=== PATIENT | male | born 2000 | race Hispanic/Latino ===

== ENCOUNTER → 2019-02-24 | Outpatient (CLI) | payer OTHER ==
--- NOTE | 2019-02-26 09:27 | Diagnostic Imaging Report ---
#[id number] - USBRECOMLT ULTRASOUND OF THE LEFT BREAST : 02/24/2019 No prior exams were available for comparison. Real-time ultrasound was performed on the left breast. There are no solid or cystic masses identified. IMPRESSION: NEGATIVE There is no sonographic evidence of malignancy. WILFREDO LOPEZ M.D. ct/penrad:02/24/2019 16:36:52 Nurse Reviewer: Fermin Guillermo [facility], [facility] letter sent: Normal Exam Ultrasound BI-RADS: 1 Negative
--- NOTE | 2019-02-26 09:27 | Diagnostic Imaging Report ---
#[id number] - USBRECOMRT ULTRASOUND OF THE RIGHT BREAST : 02/24/2019 No prior exams were available for comparison. Real-time ultrasound was performed on the right breast. There are no solid or cystic masses identified. IMPRESSION: NEGATIVE There is no sonographic evidence of malignancy. WILFREDO LOPEZ M.D. ct/penrad:02/24/2019 16:37:17 Bushel Girl: Fermin Guillermo [facility], [facility] letter sent: Normal Exam Ultrasound BI-RADS: 1 Negative
== END ==
LOC: US 09:11
PROVIDERS: ATTEND Family Medicine
DX: N62 Hypertrophy of breast (principal)